=== PATIENT | female | born 1960 | race Caucasian/White ===

== ENCOUNTER 2017-02-13 06:55 | Day surgery (SDC) | payer BC ==
[~2017-02-13 06:55] MED LIST: Lactated Ringers 1,000 ML IV SCH
[2017-02-13] MEDS ORDERED: fentaNYL 100 MCG/2 ML SDV ONE (07:42)
[2017-02-13] MEDS ORDERED: Propofol 200 MG/20 ML SDV ONE (07:42)
[2017-02-13 10:23] VITALS: BP 94/54
--- NOTE | 2017-02-13 15:20 | OR ---
PREOPERATIVE DIAGNOSIS: Screening colonoscopy. POSTOPERATIVE DIAGNOSIS: Essentially normal colonoscopic exam. PROCEDURE PROPOSED AND PROCEDURE DONE: Total flexible colonoscopy. INDICATION: This is a 56-year-old female who comes in for her first colonoscopic exam. She denies any symptomatology, and she has a distant family history with a grandparent with colon cancer. TECHNIQUE: The patient was brought to the endoscopy suite and placed in left lateral decubitus position. She was sedated per [employer] with propofol. The flexible video colonoscope was then passed transanally and under visualization advanced to the cecum. Examination revealed normal ascending, transverse, descending, sigmoid, and rectal colon. There was no evidence of any polyps, diverticulosis, colitis, or any other abnormalities. The scope was then withdrawn. The patient tolerated the procedure well. FINAL IMPRESSION: Essentially normal colonoscopic exam. PLAN: The patient was reassured. I felt like she could wait 10 years before she needs a repeat colonoscopy. SCM: 02/13/2017 08:49:34 MODL: 02/13/2017 15:07:21 /[id number]
== END 2017-02-13 09:55 | disposition home or self-care (01) ==
LOC: VM.SDS 06:55
PROVIDERS: ATTEND Surgery
DX: Z12.11 Encounter for screening for malignant neoplasm of colon (principal)
CPT/HCPCS: G0121; J2704; J3010; J7120; 00810

== ENCOUNTER 2022-11-16 13:52 | Emergency (ER) | payer BC ==
[2022-11-16] MEDS ORDERED: Lidocaine 1% 10 ML MDV INJECT ONE (14:19)
[2022-11-16 17:15] VITALS: BP 120/61; PULSE 62
== END 2022-11-16 14:45 | disposition home or self-care (01) ==
LOC: VM.ED 13:52
DX: S91.012A Laceration without foreign body, left ankle, initial encounter (principal); Z88.2 Allergy status to sulfonamides; W55.12XA Struck by horse, initial encounter
CPT/HCPCS: 12001; 99283; 99284; J3490

== ENCOUNTER 2024-05-19 10:04 | Emergency (ER) | payer MEDICARE ==
[2024-05-19 10:37] LABS: BASOPHILS PERCENT AUTO 0.5 % (0.2-1.2); EOSINOPHILS ABSOLUTE AUTO 0.1 x10^3/uL (0.0-0.5); EOSINOPHILS PERCENT AUTO 0.6 % (0.0-4.0); HEMATOCRIT 38.4 % (33.0-47.0); HEMOGLOBIN 12.9 g/dL (12.0-16.0); IMMATURE GRAN ABSOLUTE AUTO 0.01 x10^3/uL (0.00-0.07); LYMPHOCYTES ABSOLUTE AUTO 1.7 x10^3/uL (1.0-4.8); LYMPHOCYTES PERCENT AUTO 21.4 % (25.0-50.0); MEAN CORPUSCULAR HEMOGLOBIN 29.7 pg (26.0-32.0); MEAN CORPUSCULAR HGB CONC 33.6 g/dL (32.0-36.0); MEAN CORPUSCULAR VOLUME 88.5 fL (78.0-93.0); MONOCYTES ABSOLUTE AUTO 0.6 x10^3/uL (0.0-0.8); NEUTROPHILS ABSOLUTE AUTO 5.6 x10^3/uL (1.8-7.7); NEUTROPHILS PERCENT AUTO 70.4 % (50.0-80.0); PLATELET COUNT,PLT 219 x10^3/uL (130-400); RED BLOOD CELL COUNT 4.34 x10^6/uL (4.00-5.50)
[2024-05-19 10:53] LABS: PROTHROMBIN TIME 10.3 SEC (8.9-11.5)
[2024-05-19 11:04] LABS: A/G RATIO 1.03; ALBUMIN 3.7 g/dL (3.4-5.0); BILIRUBIN TOTAL 0.4 mg/dL (0.2-1.0); CALCIUM 9.3 mg/dL (8.5-10.1); EST CRCL DRUG DOSING (CG) 53.52 mL/min; POTASSIUM,K 3.7 mmol/L (3.5-5.1); PROTEIN TOTAL,TP 7.3 g/dL (6.4-8.2)
[2024-05-19 11:05] LABS: ANION GAP 12.7 mmol/L (5-15)
[2024-05-19 11:34] VITALS: PULSE 68
[2024-05-19 11:36] VITALS: BP 124/69
== END 2024-05-19 11:45 | disposition home or self-care (01) ==
LOC: VM.ED 10:04
DX: G44.209 Tension-type headache, unspecified, not intractable (principal); Z88.2 Allergy status to sulfonamides
CPT/HCPCS: 36415; 80053; 84484; 85025; 85610; 99284

== ENCOUNTER 2025-04-17 08:14 | Emergency (ER) | payer MEDICARE ==
[2025-04-17 08:34] LABS: BASOPHILS ABSOLUTE AUTO 0.0 x10^3/uL (0.0-0.2); BASOPHILS PERCENT AUTO 0.7 % (0.2-1.2); EOSINOPHILS ABSOLUTE AUTO 0.1 x10^3/uL (0.0-0.5); EOSINOPHILS PERCENT AUTO 1.7 % (0.0-4.0); IMMATURE GRAN ABSOLUTE AUTO 0.04 x10^3/uL (0.00-0.07); IMMATURE GRAN PERCENT AUTO 0.70 % (0.00-0.43); LYMPHOCYTES ABSOLUTE AUTO 1.3 x10^3/uL (1.0-4.8); LYMPHOCYTES PERCENT AUTO 21.4 % (25.0-50.0); MONOCYTES ABSOLUTE AUTO 0.3 x10^3/uL (0.0-0.8); MONOCYTES PERCENT AUTO 5.6 % (2.0-11.0); NEUTROPHILS ABSOLUTE AUTO 4.2 x10^3/uL (1.8-7.7); NEUTROPHILS PERCENT AUTO 69.9 % (50.0-80.0); PLATELET COUNT,PLT 196 x10^3/uL (130-400); RED BLOOD CELL COUNT 4.30 x10^6/uL (4.00-5.50); WHITE BLOOD CELL COUNT,WBC 6.0 x10^3/uL (4.0-10.0)
[2025-04-17 08:57] LABS: A/G RATIO 0.97; ALANINE AMINOTRANSFERASE,ALT 23.0 U/L (14-59); ASPARTATE AMNIOTRANSFERASE,AST 26.0 U/L (15-37); BILIRUBIN TOTAL 0.2 mg/dL (0.2-1.0); BLOOD UREA NITROGEN,BUN 16.0 mg/dL (7-18); CARBON DIOXIDE,CO2 18.0 mmol/L (21-32); CHLORIDE,CL 107.0 mmol/L (98-107); CREATININE 1.1 mg/dL (0.55-1.02); EST CRCL DRUG DOSING (CG) 45.27 mL/min; ESTIMATED GFR 55.0 mL/min (>=60); GLUCOSE RANDOM 184.0 mg/dL (70-99); POTASSIUM,K 3.5 mmol/L (3.5-5.1); PROTEIN TOTAL,TP 6.9 g/dL (6.4-8.2); SODIUM,NA 142.0 mmol/L (136-145)
[2025-04-17] MEDS: Ondansetron 4 MG/2 ML SDV IVPUSH ONE (10:15)
[2025-04-17 10:26] LABS: APPEARANCE,URINE CLEAR (CLEAR); GLUCOSE,URINE NEGATIVE (NEGATIVE); OCCULT BLOOD,URINE TRACE-LYSED (NEGATIVE)
[2025-04-17 10:31] LABS: SQUAMOUS EPITHELIAL CELLS,UR NOT SEEN /HPF (NOT SEEN)
[2025-04-17 12:18] VITALS: BP 104/67; PULSE 77
== END 2025-04-17 12:05 | disposition home or self-care (01) ==
LOC: VM.ED 08:14
DX: R56.9 Unspecified convulsions (principal); E78.00 Pure hypercholesterolemia, unspecified; Z88.2 Allergy status to sulfonamides
CPT/HCPCS: 36415; 70450; 80053; 81001; 85025; 96361; 96365; 96375; 99284; 99285-25; A9270-GY; J2405; J7030; Q2009